=== PATIENT | male | born 1975 | race Caucasian/White ===

== ENCOUNTER 2017-09-25 17:11 | Emergency (ER) | payer OTHER ==
[2017-09-25] MEDS ORDERED: SODIUM CHLORIDE 1,000 ML IV STA (17:30)
--- NOTE | 2017-09-25 17:30 | PDOC ---
History of Present Illness - General Chief Complaint: Pain Stated Complaint: ABD PAIN Time Seen by Provider: 09/25/17 17:17 History Source: Patient Exam Limitations: No Limitations - History of Present Illness Initial Comments: CHIEF COMPLAINT: 42 y/o afebrile male, chronic alcoholic with PMH HTN ( uncontrolled) c/o abdominal pain today. HISTORY OF PRESENT ILLNESS: The patient admits he's been drinking alcohol all day and has finished an entire bottle of vodka. He states his stomach started hurting when he woke up this morning. He denies f/c, n/v/d, CP, SOB, back pain , hematuria, dysuria. He states his last BM was this morning. Vital signs on arrival are REVIEW OF SYSTEMS: GENERAL/CONSTITUTIONAL: No fever/chills. No weakness. No weight change. HEAD, EYES, EARS, NOSE AND THROAT: No change in vision. No ear pain or discharge. No sore throat. CARDIOVASCULAR: No chest pain or shortness of breath. RESPIRATORY: No cough, wheezing, or hemoptysis. GASTROINTESTINAL: +abdominal pain. No nausea, vomiting, diarrhea, constipation. GENITOURINARY: No dysuria, frequency, or change in urination. MUSCULOSKELETAL: No joint or muscle swelling or pain. No neck or back pain. SKIN: No rash or easy bruising. NEUROLOGIC: No headache, vertigo, loss of consciousness, or loss of sensation. PHYSICAL EXAM: GENERAL: The patient is awake, intoxicated, in NAD or obvious discomfort. He is ambulatory with normal gait. HEAD: Normal with no signs of trauma. ENT: Pupils equal, round and reactive to light, extraocular movements intact, sclera anicteric, conjunctiva clear. Neck supple. LUNGS: Clear to auscultation bilaterally. Normal excursion. No respiratory distress or use of accessory muscles. CV: RRR, S1/S2, no MRG. Cap refill < 2 sec. ABDOMEN: Soft, non-distended, minimal TTP of middle abdomen. Negative barlow's sign. No McBurney's point TTP. No rebound or guarding. Normal BS x 4. EXTREMITIES: Normal range of motion, no edema. NEUROLOGICAL: Normal speech, normal gait. CN II-XII grossly intact. PSYCH: Normal mood, normal affect. SKIN: Warm, dry, normal turgor, no rashes or lesions noted. Past History - Past Medical History Allergies/Adverse Reactions: Allergies Allergy/AdvReac Type Severity Reaction Status Date / Time No Known Allergies Allergy Verified 09/25/17 18:06 Home Medications: Ambulatory Orders Clonazepam [Klonopin] 1 mg PO DAILY 09/25/17 Psychiatric Problems: Yes (ANXIETY/DEPRESSION) - Surgical History Abdominal Surgery: Yes Appendectomy: Yes - Suicide/Smoking/Psychosocial Hx Smoking Status: Yes Smoking History: Current every day smoker Have you smoked in the past 12 months: No Number of Cigarettes Smoked Daily: 20 Hx Alcohol Use: Yes (SOCIAL) Substance Use Type: Alcohol ED Treatment Course - LABORATORY CBC & Chemistry Diagram: 09/25/17 18:10 09/25/17 18:10 Medical Decision Making - Medical Decision Making A/P: 42 y/o male, intoxicated, c/o abdominal pain today with benign abdominal exam. Plan is as follows: 1. Labs 2. IV fluids 3. abd xray The patient was signed out to ETHAN Adams *DC/Admit/Observation/Transfer Diagnosis at time of Disposition: ETOH abuse, Abdominal pain - Discharge Dispostion Disposition: HOME Condition at time of disposition: Stable - Referrals Referrals: Danielle Torres MD [Staff Physician] - Kalani Sapp [Non Staff, Medical] - - Patient Instructions Printed Discharge Instructions: Blood Alcohol Level, DI for Abdominal Pain- Adult Additional Instructions: Follow with the buttoner within 48 hours Avoid alcohol Abdominal ultrasound today does not show any gallstones or gallbladder infection Return back to the ER for severe/persistent or worsening symptoms - Post Discharge Activity
--- NOTE | 2017-09-25 18:04 | PDOC ---
ED Treatment Course - LABORATORY CBC & Chemistry Diagram: 09/25/17 18:10 09/25/17 18:10 Medical Decision Making - Medical Decision Making 09/25/17 18:02 Mr Rowe is a 42 y/o male, HTN, alcoholism who presents to the ER with a complaint of abdominal pain today. Drank an entire bottle of vodka No fevers no chills Pt seen by Midlevel Provider under my direct supervision Ancillary studies pending I agree with plan as outlined by Midlevel Provider EKG: SR rate of 84 bpm, axis nml, no st elevations or depressions Pt signed out to overnight BOGDAN *DC/Admit/Observation/Transfer Diagnosis at time of Disposition: ETOH abuse, Abdominal pain - Discharge Dispostion Disposition: HOME Condition at time of disposition: Stable - Referrals Referrals: Danielle Torres MD [Staff Physician] - Kalani Sapp [Non Staff, Medical] - - Patient Instructions Printed Discharge Instructions: Blood Alcohol Level, DI for Abdominal Pain- Adult Additional Instructions: Follow with the repairer hairspring within 48 hours Avoid alcohol Abdominal ultrasound today does not show any gallstones or gallbladder infection Return back to the ER for severe/persistent or worsening symptoms - Post Discharge Activity
[2017-09-25 18:06] VITALS: BMI 29.9
[2017-09-25 18:21] LABS: HEMATOCRIT 38.6 % (35.4-49); HEMOGLOBIN 13.4 GM/dL (11.7-16.9); LYMPH % 34.2 % (8-40); MCH 33.5 pg (25.7-33.7); MCHC 34.7 g/dl (32.0-35.9); MEAN CELL VOLUME 96.8 fl (80-96); MONO % 7.7 % (3.8-10.2); NEUT % 55.1 % (42.8-82.8); PLATELET COUNT 135 K/MM3 (134-434); RBC 3.99 M/mm3 (4.00-5.60); RDW 17.4 % (11.9-15.9); WHITE BLOOD COUNT 3.8 K/mm3 (4.0-10.0)
[2017-09-25 18:45] LABS: ALBUMIN 4.3 g/dl (3.4-5.0); ALK PHOS 120 U/L (45-117); ANION GAP 13 (8-16); BILIRUBIN,TOTAL 1.2 mg/dL (0.2-1.0); BLOOD UREA NITROGEN 7 mg/dL (7-18); CALCIUM 8.4 mg/dL (8.5-10.1); CHLORIDE 104 mmol/L (98-107); CO2 25 mmol/L (21-32); CREATININE 0.8 mg/dL (0.7-1.3); GLUCOSE,RANDOM 85 mg/dL (74-106); POTASSIUM 3.8 mmol/L (3.5-5.1); SGPT/ALT 263 U/L (12-78); SODIUM 142 mmol/L (136-145); TOT PROT 7.7 g/dl (6.4-8.2)
[2017-09-25 18:50] LABS: SGOT/AST 634 U/L (15-37)
--- NOTE | 2017-09-25 20:37 | PDOC ---
*Physical Exam - Vital Signs Last Vital Signs Temp Pulse Resp BP Pulse Ox 98.3 F 88 18 133/84 100 09/25/17 17:15 09/25/17 17:15 09/25/17 17:15 09/25/17 17:15 09/25/17 17:15 - Physical Exam Comments: 09/25/17 20:34 42-year-old male presents to the ER complaining of right upper abdominal discomfort after drinking an entire bottle of vodka today. Patient denies nausea /vomiting, fever/chills, dizziness, lightheadedness, facial pains, neck pain/ stiffness, back pains, chest pain, shortness of breath, back pains, urinary symptoms. Patient states he feels a bit better now. ED Treatment Course - LABORATORY CBC & Chemistry Diagram: 09/25/17 18:10 09/25/17 18:10 - ADDITIONAL ORDERS Additional order review: Laboratory Results 09/25/17 09/25/17 18:10 18:10 Sodium 142 Potassium 3.8 Chloride 104 Carbon Dioxide 25 Anion Gap 13 BUN 7 Creatinine 0.8 Creat Clearance w eGFR > 60 Random Glucose 85 Calcium 8.4 L Total Bilirubin 1.2 H AST 634 H ALT 263 H Alkaline Phosphatase 120 H Total Protein 7.7 Albumin 4.3 Lipase 942 H 09/25/17 18:10 RBC 3.99 L MCV 96.8 H MCHC 34.7 RDW 17.4 H MPV 8.0 Neutrophils % 55.1 Lymphocytes % 34.2 Monocytes % 7.7 Eosinophils % 2.0 Basophils % 1.0 - RADIOLOGY Radiograph Interpretation: 09/25/17 20:35 Abdominal ultrasound: No sonographic evidence of cholelithiasis or acute cholecystitis. There is no definite biliary tract dilatation. Diffuse hepatic steatosis is noted. Minimal to mild associated hepatomegaly is seen. - Medications Given in the ED: ED Medications Discontinued Medications Generic Name Dose Route Start Last Admin Trade Name Freq PRN Reason Stop Dose Admin Sodium Chloride 1,000 mls @ 1,000 mls/hr 09/25/17 17:30 09/25/17 18:09 Normal Saline - IV 09/25/17 18:29 1,000 mls/hr ASDIR STA Administration Progress Note - Progress Note Progress Note: GENERAL: Well developed, well nourished. Awake and alert. No acute distress. HEENT: Normocephalic, atraumatic. PERRLA, EOMI. No conjunctival pallor. Sclera are non- icteric. Moist mucous membranes. Oropharynx is clear. NECK: Supple. Full ROM. No JVD. Carotid pulses 2+ and symmetric, without bruits. No thyromegaly. No lymphadenopathy. CARDIOVASCULAR: Regular rate and rhythm. No murmurs, rubs, or gallops. Distal pulses are 2+ and symmetric. PULMONARY: No evidence of respiratory distress. Lungs clear to auscultation bilaterally. No wheezing, rales or rhonchi. ABDOMINAL: Soft. Non-tender. Non-distended. No rebound or guarding. No organomegaly. Normoactive bowel sounds. MUSCULOSKELETAL Normal range of motion at all joints. No bony deformities or tenderness. No CVA tenderness. EXTREMITIES: No cyanosis. No clubbing. No edema. No calf tenderness. SKIN: Warm and dry. Normal capillary refill. No rashes. No jaundice. NEUROLOGICAL: Alert, awake, appropriate. Cranial nerves 2-12 intact. No deficits to light touch and temperature in face, upper extremities and lower extremities. No motor deficits in the in face, upper extremities and lower extremities. Normoreflexic in the upper and lower extremities. Normal speech. Toes are down- going bilaterally. Gait is normal without ataxia. PSYCHIATRIC: Cooperative. Good eye contact. Appropriate mood and affect. *DC/Admit/Observation/Transfer Diagnosis at time of Disposition: ETOH abuse Abdominal pain Qualifiers: Abdominal location: right upper quadrant Qualified Code(s): R10.11 - Right upper quadrant pain - Discharge Dispostion Disposition: HOME Condition at time of disposition: Stable Admit: No - Referrals Referrals: Kalani Sapp [Non Staff, Medical] - Danielle Torres MD [Staff Physician] - - Patient Instructions Printed Discharge Instructions: Blood Alcohol Level, DI for Abdominal Pain- Adult Additional Instructions: Follow with the dermatology nurse practitioner within 48 hours Avoid alcohol Abdominal ultrasound today does not show any gallstones or gallbladder infection Return back to the ER for severe/persistent or worsening symptoms - Post Discharge Activity
[2017-09-25 20:40] VITALS: BP 137/78; PULSE 76; TEMP 98.8
--- NOTE | 2017-09-30 13:15 | EKG ---
Test Reason : Blood Pressure : / mmHG Vent. Rate : 084 BPM Atrial Rate : 084 BPM P-R Int : 116 ms QRS Dur : 088 ms QT Int : 358 ms P-R-T Axes : 008 077 067 degrees QTc Int : 423 ms NORMAL SINUS RHYTHM SEPTAL INFARCT , AGE UNDETERMINED ABNORMAL ECG WHEN COMPARED WITH ECG OF 03-JUL-2007 10:27, SEPTAL INFARCT IS NOW PRESENT Confirmed by JULEE ARREGUIN, CA ([id number]) on 09/30/2017 1:15:33 PM Referred By: Confirmed By:CA LADD MD
== END 2017-09-25 20:55 | disposition home or self-care (01) ==
LOC: JER 17:11
PROC: 3E0337Z Introduction of Electrolytic and Water Balance Substance into Peripheral Vein, Percutaneous Approach (ICD-10-PCS; principal; 2017-09-25)
DX: F10.10 Alcohol abuse, uncomplicated (principal); R10.11 Right upper quadrant pain; K76.0 Fatty (change of) liver, not elsewhere classified; R16.0 Hepatomegaly, not elsewhere classified; Y90.9 Presence of alcohol in blood, level not specified
CPT/HCPCS: 36415; 74019-TC-FY; 76705-TC; 80053; 83690; 85025; 93005; 93010; 96360; 99284-25; J7030

== ENCOUNTER 2018-07-31 16:38 | Emergency (ER) | payer OTHER ==
[2018-07-31 16:59] VITALS: TEMP 98.9; BMI 25.7
--- NOTE | 2018-07-31 17:25 | PDOC ---
History of Present Illness - General History Source: Patient Exam Limitations: No Limitations - History of Present Illness Initial Comments: 07/31/18 18:16 The patient is a 43 year old male, with a significant PMH of seizures, anxiety and depression, who presents to the emergency department for evaluation of 1 episode seizure that occurred today. The patient states he was trying to detox from alcohol and went to his physician where he thinks he was prescribed lorazepam. Patient states he took the medication today and drank 1 pint of Miguel Dacosta today when the seizure occurred. He endorses associated symptoms of abdomen pain, decrease in appetite and experienced 1 episode of vomiting. The patient's mother reports that patient is an alcoholic (drinks 2 pints of Miguel Flaco a day ) and has experienced seizures in the past secondary to alcohol. The patient denies chest pain, shortness of breath, headache and dizziness. Denies fever, chills, diarrhea and constipation. Denies dysuria, frequency, urgency and hematuria. Allergies: NKDA Past surgical history: Abdominal surgery and appendectomy Social history: Current everyday smoker (20 cigarettes daily) and admits alcohol use ( 2 pints Miguel Flaco every day) PCP: Tonia Rg <Lester Juarez - Last Filed: 07/31/18 18:19> <Hannah Nguyễn - Last Filed: 08/01/18 20:20> - General Chief Complaint: Seizure Stated Complaint: SEIZURE Time Seen by Provider: 07/31/18 17:25 Past History <Lester Juarez - Last Filed: 07/31/18 18:19> - Past Medical History COPD: No Psychiatric Problems: Yes (ANXIETY/DEPRESSION) Seizures: Yes (last seisure 07/31/2018) - Surgical History Abdominal Surgery: Yes Appendectomy: Yes - Suicide/Smoking/Psychosocial Hx Smoking Status: Yes Smoking History: Current every day smoker Have you smoked in the past 12 months: Yes Number of Cigarettes Smoked Daily: 20 Information on smoking cessation initiated: No Hx Alcohol Use: Yes Drug/Substance Use Hx: Yes Substance Use Type: Alcohol <Hannah Nguyễn - Last Filed: 08/01/18 20:20> - Past Medical History Allergies/Adverse Reactions: Allergies Allergy/AdvReac Type Severity Reaction Status Date / Time No Known Allergies Allergy Verified 07/31/18 16:59 Home Medications: Ambulatory Orders Clonazepam [Klonopin] 1 mg PO DAILY 09/25/17 Review of Systems - Review of Systems Able to Perform ROS?: Yes Comments:: 07/31/18 18:17 GENERAL/CONSTITUTIONAL: No fever or chills. No weakness. HEAD, EYES, EARS, NOSE AND THROAT: No change in vision. No ear pain or discharge. No sore throat. CARDIOVASCULAR: No chest pain or shortness of breath. RESPIRATORY: No cough, wheezing, or hemoptysis. GASTROINTESTINAL:+Abdomen pain, +vomiting . No diarrhea or constipation. GENITOURINARY: No dysuria, frequency, or change in urination. MUSCULOSKELETAL: No joint or muscle swelling or pain. No neck or back pain. SKIN: No rash NEUROLOGIC: +seizure. No headache, vertigo, loss of consciousness, or change in strength/sensation. ENDOCRINE: No increased thirst. No abnormal weight change. HEMATOLOGIC/LYMPHATIC: No anemia, easy bleeding, or history of blood clots. ALLERGIC/IMMUNOLOGIC: No hives or skin allergy. <Lester Juarez - Last Filed: 07/31/18 18:19> *Physical Exam - Vital Signs Last Vital Signs Temp Pulse Resp BP Pulse Ox 98.9 F 98 H 18 143/96 99 07/31/18 16:50 07/31/18 16:50 07/31/18 16:50 07/31/18 16:50 07/31/18 16:50 - Physical Exam Comments: 07/31/18 18:18 GENERAL: Awake, alert, and fully oriented, in no acute distress HEAD: No signs of trauma EYES: PERRLA, EOMI, sclera anicteric, conjunctiva clear ENT: Auricles normal inspection, hearing grossly normal, nares patent, oropharynx clear without exudates. Moist mucosa NECK: Normal ROM, supple, no lymphadenopathy, JVD, or masses LUNGS: Breath sounds equal, clear to auscultation bilaterally. No wheezes, and no crackles HEART: Regular rate and rhythm, normal S1 and S2, no murmurs, rubs or gallops ABDOMEN: +Mild LUQ pain to palpation. Normoactive bowel sounds. No guarding, no rebound. No masses EXTREMITIES: Normal range of motion, no edema. No clubbing or cyanosis. No cords, erythema, or tenderness NEUROLOGICAL: Cranial nerves II through XII grossly intact. Normal speech, normal gait SKIN: Warm, Dry, normal turgor, no rashes or lesions noted. <Lester Juarez - Last Filed: 07/31/18 18:19> - Vital Signs Last Vital Signs Temp Pulse Resp BP Pulse Ox 98.9 F 98 H 18 143/96 99 07/31/18 16:50 07/31/18 16:50 07/31/18 16:50 07/31/18 16:50 07/31/18 16:50 <Hannah Nguyễn - Last Filed: 08/01/18 20:20> Moderate Sedation - Procedure Monitoring Vital Signs: Procedure Monitoring Vital Signs Temperature 98.9 F 07/31/18 16:50 Pulse Rate 98 H 07/31/18 16:50 Respiratory Rate 18 07/31/18 16:50 Blood Pressure 143/96 07/31/18 16:50 O2 Sat by Pulse Oximetry (%) 99 07/31/18 16:50 <Lester Juarez - Last Filed: 07/31/18 18:19> - Procedure Monitoring Vital Signs: Procedure Monitoring Vital Signs Temperature 98.9 F 07/31/18 16:50 Pulse Rate 98 H 07/31/18 16:50 Respiratory Rate 18 07/31/18 16:50 Blood Pressure 143/96 07/31/18 16:50 O2 Sat by Pulse Oximetry (%) 99 07/31/18 16:50 <Hannah Nguyễn - Last Filed: 08/01/18 20:20> ED Treatment Course - Medications Given in the ED: ED Medications Discontinued Medications Generic Name Dose Route Start Last Admin Trade Name Beauq PRN Reason Stop Dose Admin Chlordiazepoxide HCl 25 mg 07/31/18 17:35 07/31/18 18:06 Librium - PO 07/31/18 17:36 25 mg ONCE ONE Administration Sodium Chloride 1,000 ml 07/31/18 17:36 07/31/18 18:06 Normal Saline - IV 07/31/18 17:37 1,000 ml ONCE ONE Administration <Lester Juarez - Last Filed: 07/31/18 18:19> - LABORATORY CBC & Chemistry Diagram: 07/31/18 18:10 07/31/18 18:10 <Hannah Nguyễn - Last Filed: 08/01/18 20:20> Medical Decision Making - Medical Decision Making 07/31/18 18:38 Pt presents to the ED complaining of seizure today. Pt is an alcoholic who was recently started on an unknown medication for outpatient detox by his PMD. All seizures in the past have been secondary to ETOH withdrawal. No signs of active withdrawal at this time, but given history of seizure, will treat with librium. If patient's symptoms are controlled by librium, will transfer to [facility] for in patient detox. If he requires IV medications, will admit to medicine. 07/31/18 20:34 Still has no signs of active withdrawal. Case discussed with [facility], pt is accepted for inpatient detox tomorrow AM. Send to [facility]. cell <Hannah Nguyễn - Last Filed: 08/01/18 20:20> *DC/Admit/Observation/Transfer - Attestations Scribe Attestion: 07/31/18 18:18 Documentation prepared by Lester Juarez, acting as medical or surgical instrument maker for Hannah Nguyễn MD. <Lester Juarez - Last Filed: 07/31/18 18:19> <Hannah Nguyễn - Last Filed: 08/01/18 20:20> Diagnosis at time of Disposition: Seizure - Discharge Dispostion Disposition: ELOPED - Referrals Referrals: Tonia Rg MD [Primary Care Provider] - - Patient Instructions - Post Discharge Activity
[2018-07-31] MEDS ORDERED: chlordiazePOXIDE HCL 25 MG CAPSULE PO ONE (17:35)
[2018-07-31] MEDS ORDERED: SODIUM CHLORIDE 0.9% 500 ML INFUS.BAG IV ONE (17:36)
[2018-07-31] MEDS ORDERED: chlordiazePOXIDE HCL 25 MG CAPSULE ONE (17:50)
[2018-07-31 18:23] LABS: BASO % 0.5 % (0-2.0); EOS % 1.9 % (0-4.5); HEMATOCRIT 48.5 % (35.4-49); HEMOGLOBIN 17.1 GM/dL (11.7-16.9); LYMPH % 27.2 % (8-40); MCH 34.9 pg (25.7-33.7); MCHC 35.2 g/dl (32.0-35.9); MEAN CELL VOLUME 99.1 fl (80-96); MEAN PLT VOLUME 7.9 fl (7.5-11.1); MONO % 8.5 % (3.8-10.2); NEUT % 61.9 % (42.8-82.8); PLATELET COUNT 220 K/MM3 (134-434); RBC 4.89 M/mm3 (4.00-5.60); RDW 14.4 % (11.9-15.9); WHITE BLOOD COUNT 6.6 K/mm3 (4.0-10.0)
[2018-07-31 19:39] LABS: ALBUMIN 4.4 g/dl (3.4-5.0); ALK PHOS 67 U/L (45-117); ANION GAP 11 MMOL/L (8-16); BILIRUBIN,TOTAL 0.5 mg/dL (0.2-1); BLOOD UREA NITROGEN 8 mg/dL (7-18); CALCIUM 8.9 mg/dL (8.5-10.1); CHLORIDE 104 mmol/L (98-107); CO2 25 mmol/L (21-32); CREATININE 0.8 mg/dL (0.55-1.3); GLUCOSE,RANDOM 79 mg/dL (74-106); LIPASE 258 U/L (73-393); POTASSIUM 3.7 mmol/L (3.5-5.1); SGOT/AST 71 U/L (15-37); SGPT/ALT 63 U/L (13-61); SODIUM 139 mmol/L (136-145); TOT PROT 8.1 g/dl (6.4-8.2)
[2018-07-31 19:44] VITALS: BP 140/85
[2018-07-31 20:25] VITALS: PULSE 98
== END 2018-07-31 20:30 | disposition left against medical advice (07) ==
LOC: JER 16:38
DX: G40.509 Epileptic seizures related to external causes, not intractable, without status epilepticus (principal); F10.20 Alcohol dependence, uncomplicated
CPT/HCPCS: 36415; 80053; 80307; 83690; 85025; 99283-25

== ENCOUNTER 2018-08-02 14:44 | Emergency (ER) | payer OTHER ==
[2018-08-02 15:07] VITALS: BP 121/83; PULSE 102; TEMP 98.4; BMI 25.7
--- NOTE | 2018-08-02 15:07 | PDOC ---
Rapid Medical Evaluation Time Seen by Provider: 08/02/18 15:02 Medical Evaluation: Allergies Allergy/AdvReac Type Severity Reaction Status Date / Time No Known Allergies Allergy Verified 07/31/18 16:59 08/02/18 15:03 I have performed a brief in-person evaluation of this patient. The patient presents with a chief complaint of alcohol intoxication and possible seizure. Patient seen here last week for intoxication and seizure, walked out because he states no one was tending to him. He was called this am and states he would like help, to go to rehab. Thinks he possibly had a seizure today. Admits to 1 pint of alcohol today Pertinent physical exam findings NAD flat affect even and unlabored breathing +right upper and lower abdominal tenderness I have ordered the following labs The patient will proceed to the ED for further evaluation.
--- NOTE | 2018-08-02 15:49 | PDOC ---
Attending Attestation - Resident Resident Name: KendraMeme - ED Attending Attestation I have performed the following: I have examined & evaluated the patient, The case was reviewed & discussed with the resident, I agree w/resident's findings & plan, Exceptions are as noted - HPI HPI: 43 yo M presents s/p suspected seizure. He has history of EtOH abuse, prior history of withdrawal seizures. He has gone through detox in the past, but never rehab. He typically drinks heavily every day, develops seizures when he stops. Denies any tremors at present. - Physicial Exam PE: GENERAL: Awake, alert, and fully oriented, in no acute distress HEAD: No signs of trauma EYES: PERRLA, EOMI, sclera anicteric, conjunctiva clear ENT: Auricles normal inspection, hearing grossly normal, nares patent, oropharynx clear without exudates. Moist mucosa. No tongue fasciculations. NECK: Normal ROM, supple, no lymphadenopathy, JVD, or masses LUNGS: Breath sounds equal, clear to auscultation bilaterally. No wheezes, and no crackles HEART: Regular rate and rhythm, normal S1 and S2, no murmurs, rubs or gallops ABDOMEN: Soft, nontender, normoactive bowel sounds. No guarding, no rebound. No masses EXTREMITIES: Normal range of motion, no edema. No clubbing or cyanosis. No cords, erythema, or tenderness. No tremors. NEUROLOGICAL: Cranial nerves II through XII grossly intact. Normal speech, normal gait. Motor and sensation intact SKIN: Warm, Dry, normal turgor, no rashes or lesions noted. - Medical Decision Making Pt with no signs of withdrawal at present (however, he was drinking just [employer]). Stable gait in ED. Agrees to go to [facility] for detox/rehab.
--- NOTE | 2018-08-02 15:58 | PDOC ---
History of Present Illness - General Chief Complaint: Seizure Stated Complaint: SEIZURE Time Seen by Provider: 08/02/18 15:02 - History of Present Illness Initial Comments: Hardik Rowe is a 43yo man with a PMH of alcoholism, depression, and alcoholic seizure who presents requesting alcohol detox today. His mother is at bedside. Mr Rowe states that he was here on Thursday but "no one saw him" so he "got fed up" and left the ED. His mother states that he was here for "8 hours and no one would even give him a glass of water." He went home and continued to drink his usual 2 pints per day. He is concerned that he had a seizure this morning becuase he appears to have lost some time. He was drinking, about a pint total so far, and had started to smoke a cigarette. The next thing he remembers, his cigarette had gone out and he was laying on the floor. However, he denies any injury, head trauma, known mechanical fall, bowel/bladder incontinence or any other symptoms. The event was unwitnessed and occurred several hours ago. Mr Rowe denies any other recent symptoms. He states that in the past, he used to drink at least a large bottle of liquor daily (1L bottle), but he had cut back to 1 pint per day. This has slowly increased over time to approximately 2 pints per day at this point. He now starts to feel shaky when he wakes up in the morning after not drinking for 7-8 hours. He has never gone to rehab in the past, though he does not a history of drug abuse until 2 years ago (coke and "pills"). Past History - Past Medical History Allergies/Adverse Reactions: Allergies Allergy/AdvReac Type Severity Reaction Status Date / Time No Known Allergies Allergy Verified 08/02/18 15:05 Home Medications: Ambulatory Orders Clonazepam [Klonopin] 1 mg PO DAILY 09/25/17 COPD: No Psychiatric Problems: Yes (ANXIETY/DEPRESSION) Seizures: Yes (last seisure 07/31/2018) - Surgical History Abdominal Surgery: Yes Appendectomy: Yes - Suicide/Smoking/Psychosocial Hx Smoking Status: Yes Smoking History: Never smoked Have you smoked in the past 12 months: Yes Number of Cigarettes Smoked Daily: 20 Information on smoking cessation initiated: No Hx Alcohol Use: No Drug/Substance Use Hx: No Substance Use Type: Alcohol Review of Systems - Review of Systems Comments:: General: No fevers, no chills, no weight or appetite change, no malaise HEENT: No changes in vision, no changes in hearing, no congestion, no sore throat CV: No chest pain, no palpitations, no LE edema Pulm: No SOB, no cough, no wheezing GI: No nausea or vomiting, no change in bowel habits, no melena : No frequency, no urgency, no dysuria Musc: No back pain, no joint swelling, no recent injury Skin: No rash, no lesions, no erythema Endo: No excessive thirst, no heat/cold intolerance Heme: No unusual bruising or bleeding, no swollen glands Neuro: No syncope, no numbness/tingling, no focal weakness Vasc: No claudication Psych: No recent change in mood, no SI or HI. h/o alcohol abuse *Physical Exam - Vital Signs Last Vital Signs Temp Pulse Resp BP Pulse Ox 98.4 F 102 H 17 121/83 97 08/02/18 15:05 08/02/18 15:05 08/02/18 15:05 08/02/18 15:05 08/02/18 15:05 - Physical Exam Comments: General: No acute distress. Smells strongly of alcohol and cigarettes. HEENT: PERRL, EOMI, MMM, voice normal, normal neck ROM, no LAD Cards: RRR, no murmur appreciated Pulm: Comfortable on room air, clear to auscultation bilaterally Abd: Soft, nontender, nondistended Ext: Atraumatic. No LE edema. ROM intact. Strength 5/5 and equal bilaterally Vasc: Extremities WWP. Skin: Normal color, no rashes or lesions Neuro: A&Ox3, CN grossly intact, normal speech, motor/sensory grossly intact and symmetric Psych: Mood appropriate to situation Moderate Sedation - Procedure Monitoring Vital Signs: Procedure Monitoring Vital Signs Temperature 98.4 F 08/02/18 15:05 Pulse Rate 102 H 08/02/18 15:05 Respiratory Rate 17 08/02/18 15:05 Blood Pressure 121/83 08/02/18 15:05 O2 Sat by Pulse Oximetry (%) 97 08/02/18 15:05 Medical Decision Making - Medical Decision Making 08/02/18 15:50 Hardik Rowe is a 43yo man with a PMH of alcoholism, depression, and seizure secondary to alcohol who presents today requesting detox. He also states that he feels he may have had a seizure today but is not sure. He suspects a seizure only because his cigarette went out while he was drinking. He felt that he lost time and must have had a seizure. However, he has no injury and did not have any incontinence or other associated symptoms. - Appears stable, VSS, observed ambulating without difficulty. No current physical complaints. Medically cleared for d/c to detox. - No indication that Mr Rowe had a seizure. More likely he did not notice his cigarette going out due to drinking 1 pint of alcohol this morning. - Called [facility]. There are detox beds available, and they do not need labs drawn prior to transfer - Will contact security to take him to detox. Discussed with Dr Alexis Gardner PGY1 *DC/Admit/Observation/Transfer Diagnosis at time of Disposition: ETOH abuse - Discharge Dispostion Disposition: HOME Condition at time of disposition: Stable Decision to Admit order: No - Referrals - Patient Instructions Printed Discharge Instructions: DI for Alcohol Abuse Additional Instructions: Discharge Instructions: You were seen in the emergency department for alcohol abuse. You were discharged so that you can go to detox. It is strongly recommended that you also go to rehab following detox. Please proceed directly to [facility] for detox. - Post Discharge Activity
== END 2018-08-02 16:19 | disposition home or self-care (01) ==
LOC: JER 14:44
DX: F10.120 Alcohol abuse with intoxication, uncomplicated (principal); G40.509 Epileptic seizures related to external causes, not intractable, without status epilepticus
CPT/HCPCS: 99281-25

== ENCOUNTER 2019-05-26 15:29 | Inpatient (IN) | payer OTHER ==
--- NOTE | 2019-05-26 15:38 | PDOC ---
Rapid Medical Evaluation Chief Complaint: Alcohol intoxication Time Seen by Provider: 05/26/19 15:35 Medical Evaluation: Allergies Allergy/AdvReac Type Severity Reaction Status Date / Time No Known Allergies Allergy Verified 08/02/18 15:05 05/26/19 15:36 I have performed a brief in-person evaluation of this patient. The patient presents with a chief complaint of: h/o alcohol abuse present due to his PCP Dr. Rg advised him to come to ED for intoxication. pt report last alcohol 10 mins ago. pt drinks 2 pints of vodka a day according to pt. pt wants detox Pertinent physical exam findings: A&O in NAD I have ordered the following: nothing The patient will proceed to the ED for further evaluation. Discharge Disposition - Diagnosis ETOH abuse - Discharge Dispostion Condition at time of disposition: Stable - Referrals - Patient Instructions - Post Discharge Activity
--- NOTE | 2019-05-26 18:12 | PDOC ---
Documentation entered by Adriana Currie SCRIBE, acting as scribe for Sirisha Groves DO. Sirisha Groves, DO: This documentation has been prepared by the Kush adkins Joy, SCRIBE, under my direction and personally reviewed by me in its entirety. I confirm that the documentation accurately reflects all work, treatment, procedures, and medical decision making performed by me. Attending Attestation - Resident Resident Name: Aidan Graves - ED Attending Attestation I have performed the following: I have examined & evaluated the patient, The case was reviewed & discussed with the resident, I agree w/resident's findings & plan, Exceptions are as noted - HPI HPI: 05/26/19 18:11 pt left prior to my evaluation - Physicial Exam PE: 05/26/19 18:11 pt left prior to my evaluation - Medical Decision Making 05/26/19 18:11 pt eloped prior to my evaluation
[2019-05-26] MEDS ORDERED: FOLIC ACID INJECTION - 1 MG, THIAMINE HCL 100 MG, MULTIVIT INJECTION ADULT 10 ML in SOD... IVPB ONE (18:50)
[2019-05-26] MEDS ORDERED: OSELTAMIVIR PHOSPHATE 75 MG CAPSULE ONE (19:14)
--- NOTE | 2019-05-26 19:24 | PDOC ---
Documentation entered by Adriana Currie SCRIBE, acting as scribe for Sirisha Groves DO. Sirisha Groves, DO: This documentation has been prepared by the Kush adkins Joy, SCRIBE, under my direction and personally reviewed by me in its entirety. I confirm that the documentation accurately reflects all work, treatment, procedures, and medical decision making performed by me. Attending Attestation - Resident Resident Name: Aidan Graves - ED Attending Attestation I have performed the following: I have examined & evaluated the patient, The case was reviewed & discussed with the resident, I agree w/resident's findings & plan, Exceptions are as noted - HPI HPI: 05/26/19 18:57 The patient is a 44 year old male with significant past medical history of alcoholism, depression, and alcoholic seizure who presents to the ED with need of alcohol detox. As per patient, he has been drinking at least a pint per day for the last x3 weeks. Patient was seen by Dr. Rg and was advised to come to the ED for alcohol detox. Allergies: NKA - Physicial Exam PE: 05/26/19 19:20 Gen: aaox3, anxious appearing heent: MMM, no tongue fasciculations neck: supple heart: +s1s2 reg lungs: cta b/l abd: soft, nt/nd +bs ext: no c/c/e, mild hand tremors neuro: cn ii-xii grossly intact, moves all extremities, muscle strength 5/5 UE and LE, decreased sensation LUE and LLE - Medical Decision Making 05/26/19 19:23 a/p: 44yo male with new dx of MS 2 weeks ago at [facility] with recent etoh abuse- pt drinking a pint of alcohol a day x 2 weeks requesting detox -pt also states he feels his numbness is worsening -pt was at Dr. Rg office and told to come to the ER for admission -pt states last drink was today -hx of alcohol abuse in the past -will send labs, ekg, ativan, banana bag -will monitor and reassess 05/26/19 19:43 cxr clear 05/26/19 20:28 pt with etoh >200 labs reviewed microblog sent to [facility] for admission 05/26/19 21:01 resident discussed the case with [facility] who accept pt to service
[2019-05-26] MEDS ORDERED: LORazepam 2 MG/ML SDV VIAL ONE (19:26)
[2019-05-26 19:43] LABS: HEMATOCRIT 44.3 % (35.4-49); HEMOGLOBIN 15.1 GM/dL (11.7-16.9); MCHC 34.2 g/dl (32.0-35.9); MEAN CELL VOLUME 93.8 fl (80-96); MEAN PLT VOLUME 8.4 fl (7.5-11.1); PLATELET COUNT 218 K/MM3 (134-434); RBC 4.72 M/mm3 (4.00-5.60); RDW 15.4 % (11.9-15.9)
[2019-05-26 20:08] LABS: ALBUMIN 4.5 g/dl (3.4-5.0); BILIRUBIN,TOTAL 0.5 mg/dL (0.2-1); BLOOD UREA NITROGEN 7.6 mg/dL (7-18); CALCIUM 9.1 mg/dL (8.5-10.1); CREATININE 0.9 mg/dL (0.55-1.3); POTASSIUM 3.9 mmol/L (3.5-5.1); TOT PROT 8.1 g/dl (6.4-8.2)
[2019-05-26 20:40] LABS: COCAINE, UR NEGATIVE ng/ml (CUTOFF=300); METHADONE, UR NEGATIVE ng/ml (CUTOFF=300); OPIATES, URI NEGATIVE ng/ml (CUTOFF=300); PHENCYCLIDINE,URINE NEGATIVE ng/ml (CUTOFF=25); URINE AMPHETAMINES NEGATIVE ng/ml (CUTOFF=500); URINE BARBITURATES NEGATIVE ng/ml (CUTOFF=200); URINE BENZODIAZEPINES NEGATIVE ng/ml (CUTOFF=200)
--- NOTE | 2019-05-26 20:46 | PDOC ---
History of Present Illness - General Chief Complaint: Alcohol intoxication Stated Complaint: SENT BY PCP Time Seen by Provider: 05/26/19 15:35 History Source: Patient - History of Present Illness Initial Comments: 05/26/19 20:44 44M w/hx EtOH use disorder, depression, newly diagnosed MS presents referred by Dr. Rg for admission for detox, further inpatient neuro management of newly diagnosed MS. P/w hand shaking, feeling urge to drink interested in detox. He reports concern about MS but denies any difficulty ambulating, swallowing, or focal weakness at this time. Past History - Past Medical History Allergies/Adverse Reactions: Allergies Allergy/AdvReac Type Severity Reaction Status Date / Time No Known Allergies Allergy Verified 05/26/19 15:38 Home Medications: Ambulatory Orders Clonazepam [Klonopin] 1 mg PO DAILY 09/25/17 COPD: No Psychiatric Problems: Yes (ANXIETY/DEPRESSION) Seizures: Yes (last seisure 07/31/2018) Other medical history: MS - Surgical History Abdominal Surgery: Yes Appendectomy: Yes - Psycho Social/Smoking Cessation Hx Smoking Status: Yes Smoking History: Current every day smoker Have you smoked in the past 12 months: Yes Number of Cigarettes Smoked Daily: 20 Information on smoking cessation initiated: No Hx Alcohol Use: Yes Drug/Substance Use Hx: No Substance Use Type: Alcohol *Physical Exam - Vital Signs Last Vital Signs Temp Pulse Resp BP Pulse Ox 98 F 111 H 18 137/83 99 05/26/19 15:32 05/26/19 15:32 05/26/19 15:32 05/26/19 15:32 05/26/19 15:32 ED Treatment Course - LABORATORY CBC & Chemistry Diagram: 05/26/19 19:36 05/26/19 19:36 - ADDITIONAL ORDERS Additional order review: Laboratory Results 05/26/19 05/26/19 05/26/19 20:18 19:36 19:36 Sodium 142 Potassium 3.9 Chloride 106 Carbon Dioxide 29 Anion Gap 8 BUN 7.6 Creatinine 0.9 Est GFR (CKD-EPI)AfAm 119.13 Est GFR (CKD-EPI)NonAf 102.79 Random Glucose 85 Calcium 9.1 Magnesium 2.0 Total Bilirubin 0.5 AST 22 ALT 29 Alkaline Phosphatase 71 Total Protein 8.1 Albumin 4.5 Opiates Screen Negative Methadone Screen Negative Barbiturate Screen Negative Phencyclidine Screen Negative Ur Amphetamines Screen Negative MDMA (Ecstasy) Screen Negative Benzodiazepines Screen Negative Cocaine Screen Negative U Marijuana (THC) Screen Negative Alcohol, Quantitative 283.8 H 05/26/19 19:36 RBC 4.72 MCV 93.8 MCHC 34.2 RDW 15.4 MPV 8.4 - RADIOLOGY Radiology Studies Ordered: Category Date Time Status CHEST PA & LAT [RAD] Stat Radiology 05/26/19 18:52 Taken CHEST X-RAY PORTABLE* [RAD] Stat Radiology 05/26/19 18:34 Taken - Medications Given in the ED: ED Medications Discontinued Medications Generic Name Dose Route Start Last Admin Trade Name Freq PRN Reason Stop Dose Admin Lorazepam 1 mg 05/26/19 18:50 05/26/19 19:32 Ativan Injection - IVPUSH 05/26/19 18:51 1 mg ONCE ONE Administration Discharge - Discharge Information Clinical Impression/Diagnosis: ETOH abuse Condition: Stable - Follow up/Referral Referrals: Tonia Rg MD [Primary Care Provider] - - Patient Discharge Instructions - Post Discharge Activity
--- NOTE | 2019-05-26 21:46 | HP ---
Admitting History and Physical - Primary Care Physician PCP: Dr. Rg - Admission Chief Complaint: Alcohol abuse History of Present Illness: 44 year old male with PMHx of EtOH use disorder, depression, newly diagnosed MS presents referred by Dr. Rg for admission for detox, further inpatient neuro management of newly diagnosed MS. According to patient he has been drinking 1 pint of vodka daily for past 2 weeks after being diagnosed with MS, now c/o of hand shaking, nausea, anxious, feeling urge to drink interested in detox. Patient denies SOB/CP, V/C/D, no urinary symptoms. 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 Psych: Yes: Addictions (alcohol abuse), Anxiety, Depression - Past Surgical History Past Surgical History: Yes: Appendectomy - Smoking History Smoking history: Current every day smoker Have you smoked in the past 12 months: Yes Aproximately how many cigarettes per day: 20 - Alcohol/Substance Use Hx Alcohol Use: Yes History of Substance Use: reports: None - Social History ADL: Independent History of Recent Travel: No Home Medications - Allergies Allergies/Adverse Reactions: Allergies Allergy/AdvReac Type Severity Reaction Status Date / Time No Known Allergies Allergy Verified 05/26/19 15:38 - Home Medications Home Medications: Ambulatory Orders Clonazepam [Klonopin] 1 mg PO DAILY 09/25/17 Family Medical History Family History: Denies Review of Systems - Review of Systems Constitutional: reports: No Symptoms Eyes: reports: No Symptoms HENT: reports: No Symptoms Neck: reports: No Symptoms Cardiovascular: reports: No Symptoms Respiratory: reports: No Symptoms Gastrointestinal: reports: Nausea Genitourinary: reports: No Symptoms Musculoskeletal: reports: No Symptoms Integumentary: reports: No Symptoms Neurological: reports: Numbness, Parasthesia, Tremors Endocrine: reports: No Symptoms Hematology/Lymphatic: reports: No Symptoms Psychiatric: reports: Depression Physical Examination Vital Signs: Vital Signs Temperature 98 F 05/26/19 15:32 Pulse Rate 111 H 05/26/19 15:32 Respiratory Rate 18 05/26/19 15:32 Blood Pressure 137/83 05/26/19 15:32 O2 Sat by Pulse Oximetry (%) 99 05/26/19 15:32 Constitutional: Yes: Anxious, Mild Distress Eyes: Yes: Conjunctiva Clear, EOM Intact HENT: Yes: Atraumatic, Normocephalic Neck: Yes: Supple, Trachea Midline Cardiovascular: Yes: Regular Rate and Rhythm Respiratory: Yes: Regular, CTA Bilaterally Gastrointestinal: Yes: Normal Bowel Sounds, Soft Renal/: Yes: WNL Musculoskeletal: Yes: WNL Extremities: Yes: WNL Edema: No Peripheral Pulses WNL: Yes Integumentary: Yes: WNL Neurological: Yes: Numbness, Tremors, Weakness Labs: CBC, BMP 05/26/19 19:36 05/26/19 19:36 Imaging - Results Chest X-ray: Report Reviewed (no acute finding) Other: Report Reviewed (cbc, cmp : wnl etoh: .200) Problem List - Problems (1) ETOH abuse Code(s): F10.10 - ALCOHOL ABUSE, UNCOMPLICATED (2) Multiple sclerosis Code(s): G35 - MULTIPLE SCLEROSIS (3) Depression Code(s): F32.9 - MAJOR DEPRESSIVE DISORDER, SINGLE EPISODE, UNSPECIFIED (4) Anxiety Code(s): F41.9 - ANXIETY DISORDER, UNSPECIFIED Assessment/Plan 44 year old with PMhx of depression, anxiety, new diagnosis of MS 2 weeks ago at [facility] with 2 weeks of etoh abuse. As per pateint has been drinking nonstop daily 1 pint of vodka since diagnosed with MS. Here requesting detox. #ETOH abuse - Etoh: >200 - given banana bag, ativan in ED - continue with banana bag - follow up Mg+ level - continue with ativan protocol - follow up detox - safety/fall precaution - seizure precaution - monitor for DTs #Depression/ anxiety - continue with Ativan - psych follow up - safety/fall precaution #New dx of MS - no home meds - follow up neurology #Nicotine dependence - continue with nicotine patch VTE: heparin SQ FEN: IVF, monitor lytes, regular diet Dispo: Med-surg Visit type - Emergency Visit Emergency Visit: Yes ED Registration Date: 05/26/19 Care time: The patient presented to the Emergency Department on the above date and was hospitalized for further evaluation of their emergent condition. - New Patient This patient is new to me today: Yes Date on this admission: 05/26/19 - Critical Care Critical Care patient: No
[2019-05-26] MEDS: NICOTINE 7 MG/24 HOURS TOPICAL PATCH TD SCH (22:48)
[2019-05-26] MEDS ORDERED: LORazepam 2 MG TABLET PO SCH (23:00)
[2019-05-26 23:14] VITALS: BMI 25.3
[2019-05-26] MEDS: LORazepam 1 MG TABLET PO PRN (23:56)
[2019-05-27] MEDS: LORazepam 1 MG TABLET PO SCH ×4 (05:34→22:06)
--- NOTE | 2019-05-27 09:07 | PN ---
Progress Note, Physician - Current Medication List Current Medications: Active Medications Heparin Sodium (Porcine) (Heparin -) 5,000 unit SQ BID [facility] Potassium Chloride/Sodium Chloride (1/2ns+20meq Kcl) 20 meq in 1,000 mls @ 125 mls/hr IV ASDIR [facility] Lorazepam (Ativan -) 0.5 mg PO Q6H DENITA Stop: 05/29/19 23:01 Lorazepam (Ativan -) 0.5 mg PO Q4H PRN PRN Reason: Symptoms of Withdrawal Stop: 05/31/19 23:59 Lorazepam (Ativan -) 0.5 mg PO ONCE ONE Stop: 05/30/19 05:01 Lorazepam (Ativan -) 1 mg PO 0500,1100,1700,2300 [facility] Stop: 05/28/19 23:01 Lorazepam (Ativan -) 1 mg PO Q4H PRN PRN Reason: Symptoms of Withdrawal Stop: 05/28/19 23:59 Last Admin: 05/26/19 23:56 Dose: 1 mg Lorazepam (Ativan -) 2 mg PO 0500,1100,1700,2300 [facility] Stop: 05/27/19 23:01 Last Admin: 05/27/19 05:34 Dose: 2 mg Nicotine (Nicoderm Patch -) 7 mg TD DAILY [facility] Last Admin: 05/26/19 22:48 Dose: 7 mg - Objective Vital Signs: Vital Signs Temperature 98.0 F 05/27/19 08:57 Pulse Rate 105 H 05/27/19 08:57 Respiratory Rate 18 05/27/19 08:57 Blood Pressure 129/80 05/27/19 08:57 O2 Sat by Pulse Oximetry (%) 97 05/27/19 00:40 Cardiovascular: Yes: S1, S2 Respiratory: Yes: Regular, CTA Bilaterally Gastrointestinal: Yes: Normal Bowel Sounds, Soft. No: Tenderness Edema: No Neurological: Yes: Alert, Oriented. No: Pre-Existing Deficit Problem List - Problems (1) ETOH abuse Assessment/Plan: - Etoh: >200 - given banana bag, ativan in ED--start IVF - follow up Mg+ level - continue with ativan protocol - follow up detox - seizure precaution - monitor for DTs Code(s): F10.10 - ALCOHOL ABUSE, UNCOMPLICATED (2) Depression Assessment/Plan: -Psych Consult Code(s): F32.9 - MAJOR DEPRESSIVE DISORDER, SINGLE EPISODE, UNSPECIFIED (3) Multiple sclerosis Assessment/Plan: - no home meds - follow up neurology Code(s): G35 - MULTIPLE SCLEROSIS
[2019-05-27 09:14] LABS: BLOOD UREA NITROGEN 11.6 mg/dL (7-18); CREATININE 0.9 mg/dL (0.55-1.3); MAGNESIUM 1.6 mg/dL (1.8-2.4); POTASSIUM 4.1 mmol/L (3.5-5.1)
[2019-05-27 09:15] LABS: HEMATOCRIT 36.1 % (35.4-49); HEMOGLOBIN 12.4 GM/dL (11.7-16.9); MCHC 34.3 g/dl (32.0-35.9); MEAN CELL VOLUME 93.3 fl (80-96); MEAN PLT VOLUME 8.4 fl (7.5-11.1); PLATELET COUNT 176 K/MM3 (134-434); RBC 3.88 M/mm3 (4.00-5.60); WHITE BLOOD COUNT 5.5 K/mm3 (4.0-10.0)
--- NOTE | 2019-05-27 11:43 | CONSULT ---
Consult Detox [facility] Reason for Current Admission/Consult: History of alcohol dependence, prior detox in past, intoxicated and interested in detox once again. Referred by:: Rema Perea - History History of Present Illness: Hardik Rowe is a 44yo man with a PMH of alcoholism, depression, and alcoholic seizure who presents requesting alcohol detox today. He states that he has been drinking more due to his recent diagnosis of MS. However, he has had detox in 07/2018 at [facility] and endorses the same amount of alcohol despite not having that diagnosis back then. He's had withdrawal seizures from attempting self-detox and was seen in ER also in 07/2018 for an apparent seizure from withdrawal. This is a chronic problem for Mr. Rowe. He's denied any other substances of abuse in the past. 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 No: Tenderness Edema: No Neurological: Yes: Alert, Oriented. No: Pre-Existing Deficit Assessment Plan - Plan Plan: 1. Alcohol Dependence with intoxication: Once Mr. Rowe has been stabilized and is no longer intoxicated, he can be transferred to [facility] to either finish detox or go on the rehab if detox is completed within [place]. He has never attempted rehab and would benefit from the structured group therapy and training on relapse prevention. Ultimately, he also has psychiatric co-morbid disorders either primarily or due to his medical issues so he needs psychiatric follow up and assessment. This will ultimately impact on the success of detox and rehab if he is also co- treated for his depression. He would also benefit from ultimately a maintenance treatment program specifically for alcohol dependence and should consider vivitrol or other medication assisted treatment options for his alcohol dependence. Continue Ativan Detox Protocol until he is stable to be transferred. - Medication Detox Regimen/Protocol: Zaira
[2019-05-27] MEDS: SODIUM CHLORIDE 0.45%/POT 20 MEQ/1,000 ML INFUS.BAG IV SCH ×2 (12:00→22:06)
[2019-05-27] MEDS: FOLIC ACID 1 MG TABLET (FP) PO SCH (12:01)
[2019-05-27] MEDS: HEPARIN NA (PORCINE) 5,000 UNITS/ML 1ML VIAL SQ SCH ×2 (12:01→21:31)
[2019-05-27] MEDS: MULTIVITAMINS (DAILY MVI) TABLET (FP) PO SCH (12:02)
[2019-05-27] MEDS: THIAMINE HCL 200 MG/2 ML VIAL IM SCH (12:03)
--- NOTE | 2019-05-27 13:21 | EKG ---
Test Reason : Blood Pressure : / mmHG Vent. Rate : 095 BPM Atrial Rate : 095 BPM P-R Int : 132 ms QRS Dur : 082 ms QT Int : 330 ms P-R-T Axes : 046 062 049 degrees QTc Int : 414 ms NORMAL SINUS RHYTHM POSSIBLE ANTERIOR INFARCT (CITED ON OR BEFORE 25-SEP-2017) ABNORMAL ECG WHEN COMPARED WITH ECG OF 25-SEP-2017 17:52, NO SIGNIFICANT CHANGE WAS FOUND Confirmed by LUCIANA ARREGUIN, ARIANNA ([id number]) on 05/27/2019 1:21:14 PM Referred By: Confirmed By:ARIANNA CHOWDHURY MD
[2019-05-27] MEDS: NICOTINE 7 MG/24 HOURS TOPICAL PATCH TD SCH (15:38)
--- NOTE | 2019-05-27 15:52 | CON.PSY ---
Psychiatry Consult Chief Complaint: 44 Ywera old male seen for Psych eval, just diagnosed with MS. Feels anxious and feels bad about ity but denies any acute DEpression or suicidal ideas or Plans. Has supportive family.. mother. 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 Symptoms: reports: Anxiety - Previous Psychiatric Treatment Outpatient: None Inpatient: None - Previous Substance Abuse Treatment Outpatient: More than 6 mos ago Inpatient: One prior admission - Reason for Previous Treatment Reason for Previous Treatment: Alcohol Abuse - Current Medications Current Medications: Active Medications Folic Acid (Folic Acid -) 1 mg PO DAILY [facility] Last Admin: 05/27/19 12:01 Dose: 1 mg Heparin Sodium (Porcine) (Heparin -) 5,000 unit SQ BID [facility] Last Admin: 05/27/19 12:01 Dose: 5,000 unit Potassium Chloride/Sodium Chloride (1/2ns+20meq Kcl) 20 meq in 1,000 mls @ 125 mls/hr IV ASDIR [facility] Last Admin: 05/27/19 12:00 Dose: 125 mls/hr Lorazepam (Ativan -) 0.5 mg PO Q6H [facility] Stop: 05/29/19 23:01 Lorazepam (Ativan -) 0.5 mg PO Q4H PRN PRN Reason: Symptoms of Withdrawal Stop: 05/31/19 23:59 Lorazepam (Ativan -) 0.5 mg PO ONCE ONE Stop: 05/30/19 05:01 Lorazepam (Ativan -) 1 mg PO 0500,1100,1700,2300 [facility] Stop: 05/28/19 23:01 Lorazepam (Ativan -) 1 mg PO Q4H PRN PRN Reason: Symptoms of Withdrawal Stop: 05/28/19 23:59 Last Admin: 05/26/19 23:56 Dose: 1 mg Lorazepam (Ativan -) 2 mg PO 0500,1100,1700,2300 [facility] Stop: 05/27/19 23:01 Last Admin: 05/27/19 12:02 Dose: 2 mg Multivitamins/Minerals/Vitamin C (Tab-A-Vit -) 1 tab PO DAILY [facility] Last Admin: 05/27/19 12:02 Dose: 1 tab Nicotine (Nicoderm Patch -) 21 mg TD DAILY [facility] Thiamine HCl (Vitamin B1 Injection -) 200 mg IM DAILY [facility] Last Admin: 05/27/19 12:03 Dose: 200 mg - Allergies Allergies: Allergies Allergy/AdvReac Type Severity Reaction Status Date / Time No Known Allergies Allergy Verified 05/26/19 15:38 - Current Living Status Usual Living Arrangement: With Parent - Current Mental Status Evaluation Appearance: Well Groomed Attitude: Cooperative - Affect Affect: Constrictive Appropriateness: Appropriate to Content - Mood Mood: Anxious - Speech/Language Expressive: Coherent - Psychomotor Activity Psychomotor Activity: Normal - Thought Process Thought Process: Intact - Thought Content Hallucinations: Absent Delusions: Absent Type: Grandiose - Self Perception Self Perception: No Impairment - Cognition Attention: Alert Orientation: Time Memory, Immediate Recall: Intact Memory, Short Term: 3/3 Memory, Remote with Promptin/3 - Concentration Serial Sevens Intact: Yes Simple Calculations Intact: Yes - Abstraction Proverb Interpretation: Intact Judgement: Intact - Insight Insight: Intact - Impulse Control Impulse Control: Good Control - Suicidal Ideation Suicidal Ideation: No - Homicidal Ideation Homicidal Ideation: No Assessment/Plan 1) Continue with Ativan. 2)Feels he does not need any anti depressants at this treatment. also refusing supportive Psychotherapy.
[2019-05-27] MEDS: NICOTINE 21 MG/24 HOURS TOPICAL PATCH TD SCH (17:13)
--- NOTE | 2019-05-27 19:29 | CON.NEURO ---
Consult Consult Specialty:: Hafsa Referred by:: Ifrah Reason for Consultation:: MS - History of Present Illness History of Present Illness: this is a very pleasant 44-year-old right-handed man who I had the pleasure ofevaluating in the office at the request of his primary care physician 10 days ago before the holidays after he was recently diagnosed with multiple sclerosis. 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 patient lives with his mother patient is not has no children there is no family history of multiple sclerosis patienthad difficulty with the numbness and tingling patient presented to [facility] patient was admitted had a spinal tap MRI of the brain and the spine No report of any recent travel unfortunately the patient was very depressed regarding the diagnosis ofmultiple reassurances that we have multiple options for treatment patient went intobinge drinkingpatient presented to the primary care physician asking for help patient was advised to go to the emergency room. - History Source History Provided By: Patient Limitations to Obtaining History: No Limitations - Past Medical History [employer]: Yes: Multiple Sclerosis Psych: Yes: Addictions (alcohol abuse), Anxiety, Depression - Past Surgical History Past Surgical History: Yes: Appendectomy - Alcohol/Substance Use Hx Alcohol Use: Yes (2 pints of vodka daily) History of Substance Use: reports: None - Smoking History Smoking history: Current every day smoker Have you smoked in the past 12 months: Yes Aproximately how many cigarettes per day: 20 - Social History Usual Living Arrangement: With Parent ADL: Independent History of Recent Travel: No Home Medications - Allergies Allergies/Adverse Reactions: Allergies Allergy/AdvReac Type Severity Reaction Status Date / Time No Known Allergies Allergy Verified 05/26/19 15:38 - Home Medications Home Medications: Ambulatory Orders Clonazepam [Klonopin] 1 mg PO DAILY 09/25/17 Family Medical History Family History: Unremarkable Review of Systems - Review of Systems Constitutional: reports: No Symptoms Eyes: reports: No Symptoms Neurological: reports: Incoordination, Numbness, Parasthesia Physical Exam-Neuro Vital Signs: Vital Signs Temperature 98.7 F 05/27/19 18:00 Pulse Rate 84 05/27/19 18:00 Respiratory Rate 18 05/27/19 18:00 Blood Pressure 122/75 05/27/19 18:00 O2 Sat by Pulse Oximetry (%) 96 05/27/19 09:00 Constitutional: Yes: Well Nourished Neck: Yes: WNL Cardiovascular: Yes: WNL Respiratory: Yes: WNL Labs: CBC, BMP 05/27/19 07:15 05/27/19 07:15 - Neuro Exam Level Of Consciousness: Yes: Oriented to Person, Oriented to Place, Oriented to Time Eyes: Yes: PERRLA Speech: WNL Dominant Hand: Right Cranial Nerves II-XII Intact: Yes Gag: Present DTR's: 1+ Left Bicep, 1+ Right Bicep, 1+ Left Tricep, 1+ Right Tricep Response to light touch: Normal Response to pain prick: Normal Response to temperature: Normal Response to vibration: Normal Motor Strength: 3/5: Left Arm, Right Arm, Left Leg, Right Leg Gait: Deferred Imaging - Results Cat Scan: Image Reviewed Problem List - Problems (1) Multiple sclerosis Assessment/Plan: atient with no sign of acute [employer] pathology Patient with establisheddiagnosis of relapsing remitting multiple sclerosis I have had a lengthy conversation with the patient regarding options for treatment Patient should start immune modulation as an outpatient patient agreed that he cannot drink Patient understands to risk associated with drinking and using of the immune modulator treatment for multiple sclerosis Agreed to the psych consult There is no need to start steroid for this admission thank you very much for allowing me to be part of this patient neurological care An Pereyra M.D. Code(s): G35 - MULTIPLE SCLEROSIS
[2019-05-28] MEDS: LORazepam 1 MG TABLET PO SCH ×4 (05:11→22:59)
[2019-05-28] MEDS: SODIUM CHLORIDE 0.45%/POT 20 MEQ/1,000 ML INFUS.BAG IV SCH ×2 (05:11→10:49)
[2019-05-28] MEDS: MULTIVITAMINS (DAILY MVI) TABLET (FP) PO SCH (10:50)
[2019-05-28] MEDS: THIAMINE HCL 200 MG/2 ML VIAL IM SCH (10:50)
[2019-05-28] MEDS: HEPARIN NA (PORCINE) 5,000 UNITS/ML 1ML VIAL SQ SCH ×2 (10:50→22:06)
[2019-05-28] MEDS: FOLIC ACID 1 MG TABLET (FP) PO SCH (10:50)
[2019-05-28] MEDS: NICOTINE 21 MG/24 HOURS TOPICAL PATCH TD SCH (10:51)
--- NOTE | 2019-05-28 12:36 | PN ---
Progress Note, Physician Chief Complaint: AWAKE ALERT EVENTS REVIEWED FEELS ANXIOUS - Current Medication List Current Medications: Active Medications Folic Acid (Folic Acid -) 1 mg PO DAILY [facility] Last Admin: 05/28/19 10:50 Dose: 1 mg Heparin Sodium (Porcine) (Heparin -) 5,000 unit SQ BID [facility] Last Admin: 05/28/19 10:50 Dose: 5,000 unit Potassium Chloride/Sodium Chloride (1/2ns+20meq Kcl) 20 meq in 1,000 mls @ 125 mls/hr IV ASDIR [facility] Last Admin: 05/28/19 10:49 Dose: Not Given Lorazepam (Ativan -) 0.5 mg PO Q6H [facility] Stop: 05/29/19 23:01 Lorazepam (Ativan -) 0.5 mg PO Q4H PRN PRN Reason: Symptoms of Withdrawal Stop: 05/31/19 23:59 Lorazepam (Ativan -) 0.5 mg PO ONCE ONE Stop: 05/30/19 05:01 Lorazepam (Ativan -) 1 mg PO 0500,1100,1700,2300 [facility] Stop: 05/28/19 23:01 Last Admin: 05/28/19 10:51 Dose: 1 mg Lorazepam (Ativan -) 1 mg PO Q4H PRN PRN Reason: Symptoms of Withdrawal Stop: 05/28/19 23:59 Last Admin: 05/26/19 23:56 Dose: 1 mg Multivitamins/Minerals/Vitamin C (Tab-A-Vit -) 1 tab PO DAILY [facility] Last Admin: 05/28/19 10:50 Dose: 1 tab Nicotine (Nicoderm Patch -) 21 mg TD DAILY [facility] Last Admin: 05/28/19 10:51 Dose: 21 mg Thiamine HCl (Vitamin B1 Injection -) 200 mg IM DAILY [facility] Last Admin: 05/28/19 10:50 Dose: 200 mg - Objective Vital Signs: Vital Signs Temperature 97.5 F L 05/28/19 09:00 Pulse Rate 75 05/28/19 09:00 Respiratory Rate 20 05/28/19 09:00 Blood Pressure 122/76 05/28/19 09:00 O2 Sat by Pulse Oximetry (%) 96 05/27/19 21:00 Constitutional: Yes: Mild Distress Cardiovascular: Yes: Regular Rate and Rhythm Respiratory: Yes: WNL Gastrointestinal: Yes: WNL Genitourinary: Yes: WNL Musculoskeletal: Yes: Muscle Weakness Edema: No Integumentary: Yes: WNL Wound/Incision: Yes: Clean/Dry Neurological: Yes: Pre-Existing Deficit, Weakness ...Motor Strength: LLE, RLE Psychiatric: Yes: Other Labs: CBC, BMP 05/27/19 07:15 05/27/19 07:15 Problem List - Problems (1) Anxiety Code(s): F41.9 - ANXIETY DISORDER, UNSPECIFIED (2) Depression Code(s): F32.9 - MAJOR DEPRESSIVE DISORDER, SINGLE EPISODE, UNSPECIFIED (3) ETOH abuse Code(s): F10.10 - ALCOHOL ABUSE, UNCOMPLICATED (4) Multiple sclerosis Code(s): G35 - MULTIPLE SCLEROSIS Assessment/Plan DC ALL IV MEDS/FLUIDS ATIVAN PRN ETOH PROTOCOL REHAB TX OUTPATIENT GROUP CARE DVT PROPHYLAXIS
[2019-05-28] MEDS: LORazepam 1 MG TABLET PO PRN ×2 (12:44→19:47)
[2019-05-28] MEDS ORDERED: RANITIDINE HCL 150 MG/10 ML UNIT-DOSE PO SCH (12:45)
[2019-05-28] MEDS: FAMOTIDINE 20 MG TABLET PO SCH (12:49)
[2019-05-28] MEDS: PARoxetine HCL 10 MG TABLET PO SCH ×2 (13:51→13:58)
[2019-05-28] MEDS: THIAMINE HCL 100 MG TABLET (FP) PO SCH (23:00)
[2019-05-29] MEDS ORDERED: LORazepam 0.5 MG TABLET PO PRN
[2019-05-29] MEDS: LORazepam 0.5 MG TABLET PO SCH ×2 (04:23→10:06)
--- NOTE | 2019-05-29 08:40 | PN ---
Progress Note, Physician Chief Complaint: AWAKE ANXIOUS - Current Medication List Current Medications: Active Medications Famotidine (Pepcid -) 20 mg PO DAILY [facility] Last Admin: 05/28/19 12:49 Dose: 20 mg Folic Acid (Folic Acid -) 1 mg PO DAILY [facility] Last Admin: 05/28/19 10:50 Dose: 1 mg Heparin Sodium (Porcine) (Heparin -) 5,000 unit SQ BID [facility] Last Admin: 05/28/19 22:06 Dose: Not Given Lorazepam (Ativan -) 0.5 mg PO Q6H [facility] Stop: 05/29/19 23:01 Last Admin: 05/29/19 04:23 Dose: 0.5 mg Lorazepam (Ativan -) 0.5 mg PO Q4H PRN PRN Reason: Symptoms of Withdrawal Stop: 05/31/19 23:59 Lorazepam (Ativan -) 0.5 mg PO ONCE ONE Stop: 05/30/19 05:01 Multivitamins/Minerals/Vitamin C (Tab-A-Vit -) 1 tab PO DAILY [facility] Last Admin: 05/28/19 10:50 Dose: 1 tab Nicotine (Nicoderm Patch -) 21 mg TD DAILY [facility] Last Admin: 05/28/19 10:51 Dose: 21 mg Paroxetine HCl (Paxil -) 10 mg PO DAILY [facility] Last Admin: 05/28/19 13:58 Dose: Not Given Thiamine HCl (Vitamin B1 -) 100 mg PO BID [facility] Last Admin: 05/28/19 23:00 Dose: 100 mg - Objective Vital Signs: Vital Signs Temperature 98.6 F 05/29/19 06:49 Pulse Rate 81 05/29/19 06:49 Respiratory Rate 20 05/29/19 06:49 Blood Pressure 131/84 05/29/19 06:49 O2 Sat by Pulse Oximetry (%) 96 05/28/19 21:00 Constitutional: Yes: Mild Distress Cardiovascular: Yes: WNL Respiratory: Yes: WNL Gastrointestinal: Yes: WNL Genitourinary: Yes: WNL Musculoskeletal: Yes: WNL Extremities: Yes: WNL Peripheral Pulses WNL: Yes Integumentary: Yes: WNL Wound/Incision: Yes: Clean/Dry Neurological: Yes: Pre-Existing Deficit ...Motor Strength: WNL Psychiatric: Yes: Other Labs: CBC, BMP 05/27/19 07:15 05/27/19 07:15 Problem List - Problems (1) Anxiety Code(s): F41.9 - ANXIETY DISORDER, UNSPECIFIED (2) Depression Code(s): F32.9 - MAJOR DEPRESSIVE DISORDER, SINGLE EPISODE, UNSPECIFIED (3) ETOH abuse Code(s): F10.10 - ALCOHOL ABUSE, UNCOMPLICATED (4) Multiple sclerosis Code(s): G35 - MULTIPLE SCLEROSIS Assessment/Plan DC ALL IV MEDS/FLUIDS ATIVAN PRN ETOH PROTOCOL REHAB TX OUTPATIENT GROUP CARE DVT PROPHYLAXIS NEUROLOGY F/U FOR M.S.
[2019-05-29] MEDS ORDERED: PT OWN MED DRAWER 7, Y5N ONE (09:41)
[2019-05-29] MEDS: MULTIVITAMINS (DAILY MVI) TABLET (FP) PO SCH (09:49)
[2019-05-29] MEDS: FAMOTIDINE 20 MG TABLET PO SCH (09:49)
[2019-05-29] MEDS: PARoxetine HCL 10 MG TABLET PO SCH (09:49)
[2019-05-29] MEDS: FOLIC ACID 1 MG TABLET (FP) PO SCH (09:50)
[2019-05-29] MEDS: HEPARIN NA (PORCINE) 5,000 UNITS/ML 1ML VIAL SQ SCH ×2 (09:55→21:52)
[2019-05-29] MEDS: NICOTINE 21 MG/24 HOURS TOPICAL PATCH TD SCH (09:55)
[2019-05-29] MEDS: THIAMINE HCL 100 MG TABLET (FP) PO SCH ×2 (11:35→21:52)
[2019-05-29] MEDS: LORazepam 1 MG TABLET PO SCH ×2 (13:43→21:52)
[2019-05-29] MEDS ORDERED: LORazepam 0.5 MG TABLET PO ONE (18:14)
[2019-05-29] MEDS: MAGNESIUM OXIDE 400 MG TABLET (FP) PO SCH (21:52)
[2019-05-30] MEDS ORDERED: LORazepam 0.5 MG TABLET PO ONE (05:00)
[2019-05-30] MEDS: LORazepam 1 MG TABLET PO SCH ×2 (06:17→14:14)
[2019-05-30] MEDS: FOLIC ACID 1 MG TABLET (FP) PO SCH (09:59)
[2019-05-30] MEDS: THIAMINE HCL 100 MG TABLET (FP) PO SCH (09:59)
[2019-05-30] MEDS: NICOTINE 21 MG/24 HOURS TOPICAL PATCH TD SCH (10:00)
[2019-05-30] MEDS: FAMOTIDINE 20 MG TABLET PO SCH (10:00)
[2019-05-30] MEDS: MULTIVITAMINS (DAILY MVI) TABLET (FP) PO SCH (10:00)
[2019-05-30] MEDS: HEPARIN NA (PORCINE) 5,000 UNITS/ML 1ML VIAL SQ SCH (10:00)
[2019-05-30] MEDS: MAGNESIUM OXIDE 400 MG TABLET (FP) PO SCH (10:00)
[2019-05-30] MEDS ORDERED: PT OWN MED DRAWER 7, Y5N ONE (10:11)
[2019-05-30] MEDS: PARoxetine HCL 10 MG TABLET PO SCH (10:20)
[2019-05-30 11:18] VITALS: BP 128/85; PULSE 108; TEMP 97.6
--- NOTE | 2019-05-30 11:36 | PN ---
Progress Note, Physician Chief Complaint: Alcohol withdrawal History of Present Illness: NAD Ambulating in the hallway wants to go home refuses inpatient rehab - Current Medication List Current Medications: Active Medications Famotidine (Pepcid -) 20 mg PO DAILY [facility] Last Admin: 05/30/19 10:00 Dose: 20 mg Folic Acid (Folic Acid -) 1 mg PO DAILY [facility] Last Admin: 05/30/19 09:59 Dose: 1 mg Heparin Sodium (Porcine) (Heparin -) 5,000 unit SQ BID [facility] Last Admin: 05/30/19 10:00 Dose: 5,000 unit Lorazepam (Ativan -) 1 mg PO TID [facility] Last Admin: 05/30/19 06:17 Dose: 1 mg Magnesium Oxide (Mag-Ox -) 400 mg PO BID [facility] Last Admin: 05/30/19 10:00 Dose: 400 mg Multivitamins/Minerals/Vitamin C (Tab-A-Vit -) 1 tab PO DAILY [facility] Last Admin: 05/30/19 10:00 Dose: 1 tab Nicotine (Nicoderm Patch -) 21 mg TD DAILY [facility] Last Admin: 05/30/19 10:00 Dose: 21 mg Paroxetine HCl (Paxil -) 10 mg PO DAILY [facility] Last Admin: 05/30/19 10:20 Dose: 10 mg Thiamine HCl (Vitamin B1 -) 100 mg PO BID [facility] Last Admin: 05/30/19 09:59 Dose: 100 mg - Objective Vital Signs: Vital Signs Temperature 97.6 F 05/30/19 10:00 Pulse Rate 108 H 05/30/19 10:00 Respiratory Rate 18 05/30/19 10:00 Blood Pressure 128/85 05/30/19 10:00 O2 Sat by Pulse Oximetry (%) 99 05/30/19 09:00 Constitutional: Yes: Well Nourished, No Distress, Calm Cardiovascular: Yes: Regular Rate and Rhythm Respiratory: Yes: Regular Gastrointestinal: Yes: Normal Bowel Sounds, Soft Genitourinary: Yes: WNL Musculoskeletal: Yes: WNL Extremities: Yes: WNL Edema: No Peripheral Pulses WNL: Yes Neurological: Yes: Alert, Oriented Psychiatric: Yes: Alert, Oriented Labs: CBC, BMP 05/27/19 07:15 05/27/19 07:15
== END 2019-05-30 14:39 | disposition home or self-care (01) | DRG 775 ==
LOC: JER 15:29 → JERBED 21:04 → J5S 22:53
PROVIDERS: ADMIT Family Medicine; ATTEND Family Medicine
DX: F10.220 Alcohol dependence with intoxication, uncomplicated (principal); F10.230 Alcohol dependence with withdrawal, uncomplicated; F17.210 Nicotine dependence, cigarettes, uncomplicated; G35 Multiple sclerosis; F41.8 Other specified anxiety disorders; Y90.8 Blood alcohol level of 240 mg/100 ml or more
CPT/HCPCS: 36415; 71045-TC-FY; 71046-TC-FY; 80048; 80053; 80307; 82962; 83735; 85027; 93005; 93010; 99282-25; J1644; J3480; J7030

== ENCOUNTER 2019-07-18 18:51 | Emergency (ER) | payer OTHER ==
[2019-07-18 18:59] VITALS: BP 133/84; PULSE 95; TEMP 98; BMI 25.0
--- NOTE | 2019-07-18 19:00 | PDOC ---
Rapid Medical Evaluation Medical Evaluation: Allergies Allergy/AdvReac Type Severity Reaction Status Date / Time No Known Allergies Allergy Verified 05/26/19 15:38 I have performed a brief in-person evaluation of this patient. The patient presents with a chief complaint of: hx of MS c/o B/L leg pain from today (from heels to knees); states does not usually get this type of pain Pertinent physical exam findings: In NAD, BLE unremarkable, no swelling, calf pain, normal color I have ordered the following: Nothing The patient will proceed to the ED for further evaluation. 07/18/19 18:58 Discharge Disposition - Referrals Referrals: Tonia Rg MD [Primary Care Provider] - - Patient Instructions - Post Discharge Activity
[2019-07-18] MEDS ORDERED: LIDOCAINE PATCH REMOVAL MC SCH (22:00)
--- NOTE | 2019-07-18 22:15 | PDOC ---
History of Present Illness - General Chief Complaint: Pain Stated Complaint: LEG PAIN Time Seen by Provider: 07/18/19 18:57 History Source: Patient - History of Present Illness Initial Comments: 07/18/19 22:17 44 year old male c/o b/l leg pain since 4 pm left is worse than right. denies weakness. patient reports pain is shooting up the left from heel to knee. patient also reports drinking alcohol this afternoon. no slurred speech. PMHX: MS Neurology: Dr. pereyra Past History - Past Medical History Allergies/Adverse Reactions: Allergies Allergy/AdvReac Type Severity Reaction Status Date / Time No Known Allergies Allergy Verified 07/18/19 19:00 Home Medications: Ambulatory Orders Famotidine [Pepcid -] 20 mg PO DAILY #30 tablet 05/30/19 Folic Acid - 1 mg PO DAILY #30 tablet 05/30/19 Lorazepam [Ativan] 1 mg PO TID PRN 05/30/19 Magnesium Oxide [Mag-Ox -] 400 mg PO BID #60 tablet 05/30/19 Multivitamins [Multivit ([facility] Formul[facility])] 1 tab PO DAILY #30 tab 05/30/19 Nicotine Patch [Nicoderm Patch -] 21 mg TD DAILY #30 patch 05/30/19 Paroxetine HCl [Paxil -] 10 mg PO DAILY #30 tablet 05/30/19 Thiamine HCl [Vitamin B1 -] 100 mg PO BID #30 tablet 05/30/19 Lidocaine 5% Patch [Lidoderm -] 1 patch TP DAILY PRN #30 patch 07/18/19 COPD: No Psychiatric Problems: Yes (ANXIETY/DEPRESSION) Seizures: Yes (last seisure 07/31/2018) Other medical history: MS - Surgical History Abdominal Surgery: Yes Appendectomy: Yes - Psycho Social/Smoking Cessation Hx Smoking Status: Yes Smoking History: Never smoked Have you smoked in the past 12 months: Yes Number of Cigarettes Smoked Daily: 20 'Breaking Loose' booklet given: 05/26/19 Hx Alcohol Use: Yes Drug/Substance Use Hx: No Substance Use Type: Alcohol Hx Substance Use Treatment: Yes (2 detoxes in the past never rehab) Review of Systems - Review of Systems Able to Perform ROS?: Yes Is the patient limited [place] proficient: No Constitutional: No: Symptoms Reported, See HPI, Chills, Diaphoresis, Fever, Loss of Appetite, Malaise, Night Sweats, Weakness, Weight Stable, Unintentional Wgt. 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 NML intact, Fully Oriented, Alert, Normal Mood/ Affect, Normal Response, Motor Strength 5/5, Other (heel pain) ED Progress Note - Progress Note Progress Note: 07/19/19 06:06 A: leg pain P: lidocaine patch patient refused tylenol Discharge - Discharge Information Problems reviewed: Yes Clinical Impression/Diagnosis: Leg pain, bilateral Condition: Stable Disposition: HOME - Additional Discharge Information Prescriptions: Lidocaine 5% Patch [Lidoderm -] 1 patch TP DAILY PRN #30 patch PRN Reason: Pain - Follow up/Referral Referrals: Tonia Rg MD [Primary Care Provider] - An Pereyra MD [Staff Physician] - - Patient Discharge Instructions Patient Printed Discharge Instructions: DI for Leg Pain Additional Instructions: apply lidocaine patch to the foot once daily as needed use compression stocking follow up with your doctor as soon as possible. - Post Discharge Activity Work/Back to School Note: Back to Work
[2019-07-18] MEDS ORDERED: LIDOCAINE 5% TOPICAL PATCH TP ONE (22:29)
[2019-07-18] MEDS ORDERED: ACETAMINOPHEN 500 MG TABLET (FP) PO ONE (22:30)
[2019-07-18] MEDS ORDERED: ACETAMINOPHEN 325 MG TABLET (FP) ONE (22:35)
[2019-07-18] MEDS ORDERED: LIDOCAINE 5% TOPICAL PATCH ONE (22:35)
== END 2019-07-18 22:48 | disposition home or self-care (01) ==
LOC: JER 18:51
DX: M79.662 Pain in left lower leg (principal); M79.661 Pain in right lower leg; G35 Multiple sclerosis; F10.10 Alcohol abuse, uncomplicated; F41.8 Other specified anxiety disorders; F32.9 Major depressive disorder, single episode, unspecified
CPT/HCPCS: 99283-25

== ENCOUNTER 2021-06-07 06:42 | Day surgery (SDC) | payer OTHER ==
[2021-05-29 15:05] VITALS: BMI 25.4
[2021-06-07] MEDS ORDERED: ROPIVACAINE HCL/PF 100 MG/20 ML VIAL ONE (09:20)
[2021-06-07] MEDS ORDERED: MIDAZOLAM HCL 2 MG/2 ML SINGLE DOSE VIAL ONE ×2 (09:20→10:04)
[2021-06-07] MEDS ORDERED: BUPIVACAINE HCL/EPINEPHRINE/PF 30 ML VIAL IJ ONE (09:35)
[2021-06-07] MEDS ORDERED: PROPOFOL 20 ML ONE ×3 (10:14)
[2021-06-07] MEDS ORDERED: ONDANSETRON 4 MG/2 ML VIAL ONE (10:24)
[2021-06-07] MEDS ORDERED: ceFAZolin SODIUM 1 GM VIAL ONE (10:24)
[2021-06-07] MEDS ORDERED: BUPIVACAINE 0.25% /EPI 1:200,000 10 ML VIAL NR ONE (11:01)
[2021-06-07] MEDS ORDERED: ONDANSETRON 4 MG/2 ML VIAL IVPUSH PRN (11:39)
[2021-06-07] MEDS ORDERED: oxyCODONE HCL 5 MG TABLET PO PRN ×2 (11:39)
[2021-06-07] MEDS ORDERED: LACTATED RINGERS SOLUTION 1,000 ML IV SCH (11:45)
[2021-06-07 11:58] VITALS: TEMP 97.8
[2021-06-07 14:17] VITALS: BP 138/68; PULSE 77
== END 2021-06-07 13:50 | disposition home or self-care (01) ==
LOC: FASU 06:42
PROVIDERS: ATTEND Orthopaedic Surgery
PROC: 0RBJ4ZZ Excision of Right Shoulder Joint, Percutaneous Endoscopic Approach (ICD-10-PCS; principal; 2021-06-07 10:22)
DX: M75.121 Complete rotator cuff tear or rupture of right shoulder, not specified as traumatic (principal); S43.431A Superior glenoid labrum lesion of right shoulder, initial encounter; X58.XXXA Exposure to other specified factors, initial encounter; Y93.9 Activity, unspecified; Y92.9 Unspecified place or not applicable; M65.811 Other synovitis and tenosynovitis, right shoulder; M75.01 Adhesive capsulitis of right shoulder
CPT/HCPCS: 94760